=== PATIENT | female | born 1970 | race Caucasian/White ===

== ENCOUNTER 2017-07-17 21:12 | Emergency (ER) | payer MEDICARE | END 2017-07-18 00:10 | disposition home or self-care (01) | LOC: D.ER 21:12 | DX: S92.402A Displaced unspecified fracture of left great toe, initial encounter for closed fracture (principal); V23.4XXA Motorcycle driver injured in collision with car, pick-up truck or van in traffic accident, initial encounter; Y93.89 Activity, other specified; Y92.410 Unspecified street and highway as the place of occurrence of the external cause ==

== ENCOUNTER 2018-07-11 06:30 | Day surgery (SDC) | payer OTHER, MEDICARE ==
[2018-07-10 09:24] LABS: HEMATOCRIT 43.5 % (36.0-48.0); HEMOGLOBIN 14.3 g/dL (12-16); MCH 27.9 pg (26.0-34.0); MCHC 32.9 g/dL (31.0-37.0); MEAN PLATELET VOLUME 9.9 fL (7.4-10.4); RBC 5.12 10x6/uL (4.00-5.40); RDW 14.3 % (11.5-14.5); WBC 6.1 10x3/uL (4.8-10.8)
[~2018-07-11] VITALS: Ht 165.1 cm; Wt 72.6 kg
[~2018-07-11 06:30] MED LIST: LISINOPRIL10 MG PO; [UNRECOGNIZED DRUG - OTHER] PO
[2018-07-11 07:43] VITALS: BP 139/84; Ht 165.1 cm; Wt 72.6 kg
[2018-07-11] MEDS ORDERED: HYDROCODON-ACE1 EAC7 PO (09:46)
--- NOTE | 2018-07-11 11:15 | NUR ---
PATIENT AMBULATES TO BATHROOM AND VOIDS LARGE AMOUNT IN TOILET WITHOUT DIFFICULTY. AMBULATES USING WALKER WITHOUT UNSTEADINESS
--- NOTE | 2018-07-11 11:30 | NUR ---
PATIENT SITTING ON SIDE OF BED, DRESSING IN PERSONAL CLOTHING WITH AUNT'S ASSISTANCE. RIGHT HAND PIV DC'D WITH TIP INTACT. DISCHARGE INSTRUCTIONS REVIEWED WITH PATIENT AND AUNT
--- NOTE | 2018-07-11 11:40 | NUR ---
DISCHARGED HOME VIA WHEELCHAIR TO PRIVATE VEHICLE WITH AUNT
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
== END 2018-07-11 11:40 | disposition home or self-care (01) ==
LOC: D.OPS 06:30 → D.PAN 11:45
PROVIDERS: Anesthesiology; ATTEND Orthopaedic Surgery
DX: M65.862 Other synovitis and tenosynovitis, left lower leg (principal); Z01.812 Encounter for preprocedural laboratory examination

== ENCOUNTER 2019-06-26 05:10 | Day surgery (SDC) | payer OTHER, MEDICARE ==
[2019-06-24 09:44] LABS: BASOPHILS 0.6 % (0-2); EOSINOPHILS 2.6 % (0-7); HEMATOCRIT 38.1 % (36.0-48.0); HEMOGLOBIN 12.4 g/dL (12-16); IMMATURE GRANULOCYTES 0.4 % (0-5); LYMPHOCYTES 29.7 % (15-50); MCH 29.1 pg (26.0-34.0); MCHC 32.5 g/dL (31.0-37.0); MCV 89.4 fL (80.0-100.0); MEAN PLATELET VOLUME 9.7 fL (7.4-10.4); MONOCYTES 12.2 % (2-11); NEUTROPHILS 54.5 % (40-80); PLATELET COUNT 237 10x3/uL (130-400); RBC 4.26 10x6/uL (4.00-5.40); RDW 12.6 % (11.5-14.5)
[~2019-06-26] VITALS: Ht 165.1 cm; Wt 77.1 kg
--- NOTE | ~2019-06-26 | OP ---
PATIENT NAME: HANNA ALLEN MEDICAL RECORD: [id number] :72 LOCATION:[facility] ADMISSION DATE: SURGEON: TAB HARRIS MD DATE OF OPERATION: 06/26/2019 PREOPERATIVE DIAGNOSIS: Metrorrhagia. POSTOPERATIVE DIAGNOSIS: Endometrial polyps. PROCEDURE: Hysteroscopy, dilation and curettage. SURGEON: Tab Harris MD ANESTHESIA: General endotracheal. INTRAVENOUS FLUIDS: Per anesthesia record. HYSTEROSCOPIC FLUID LOSS: Approximately 200 cc of 0.9 normal saline. ESTIMATED BLOOD LOSS: Minimal. SPECIMENS: Endometrial curettings. COMPLICATIONS: None apparent. FINDINGS: 1. Grossly normal-appearing external genitalia, vagina and cervix. 2. Endometrium with multiple polyps. PROCEDURE IN DETAIL: The patient was taken to the operating room where general anesthesia was achieved without any difficulty. The patient was then prepped and draped in normal sterile fashion in the dorsal lithotomy position in the [facility]. Following prep and drape, the bladder was drained of approximately 200 cc of clear yellow urine. At this point, a Graves speculum was placed in the vagina and the cervix was identified and grasped on its anterior lip with a single tooth tenaculum. Dilation of cervix was performed to approximately 4 mm and the hysteroscope was used to enter the endometrial cavity without resistance. Survey of the endometrial cavity was performed and the hysteroscope was removed. Sharp curettage was then used to remove multiple polyps in all 4 quadrants. Repeat hysteroscopic evaluation after the curettage revealed majority of polyps removed. Several more targeted curettings were used to remove several of the larger polyps until the endometrial cavity was approximately 90% free of any polypoid tissue. The hysteroscope was found and removed and the tenaculum as well. The speculum was removed from the vagina. The patient tolerated the procedure well and was transported to postanesthesia recovery stable without incident. TRANSINT:[id number] Voice Confirmation ID: [id number] DOCUMENT ID: [id number] OPERATIVE REPORT [id number] TERIHANNA GREGG TAB HARRIS MD CC: [id number] DICTATION DATE: 07/10/19 0943 PROGRAM SCHEDULE CLERK: 07/10/19 1518 [facility] 06/26/19 [place] [address]
[~2019-06-26 05:10] MED LIST changes: +ASCORBIC ACID500 MG PO; +HYDROCODON-ACE1 EAC7 PO; +NORVASC10 MG PO; +SLOW RELEASE I160 MG PO
[2019-06-26 05:43] VITALS: BP 134/77; BMI 28.3
[2019-06-26 05:54] VITALS: Ht 165.1 cm; Wt 77.1 kg
[2019-06-26 06:01] LABS: HCG URINE NEGATIVE (NEGATIVE)
--- NOTE | 2019-06-26 09:16 | NUR ---
FULL LIQUID TRAY TO ROOM.
--- NOTE | 2019-06-26 10:18 | NUR ---
0955-DISCHARGE CRITERIA MET. REMOVED IV WITH CATH INTACT,DISPOSED INTO SHARPS,COVERED WITH GUAZE,SECURED WITH MEDIPORE TAPE. REVIEWED POST OPERATIVE INSTRCTIONS, FOLLOW UP APPOINTMENT AND PAIN PRESCRIPTION. VERBALIZED UNDERSTANDING
--- NOTE | 2019-06-26 10:19 | NUR ---
1010-PT DRESSED. ESCORTED OUT VIA W/C WITH FAMILY MEMBER AWAITING TO DRIVE HOME.
== END 2019-06-26 10:10 | disposition home or self-care (01) ==
LOC: D.PAN 05:10 → D.OPS 07:30 → D.PAN 07:30
PROVIDERS: ATTEND Obstetrics & Gynecology
DX: N92.1 Excessive and frequent menstruation with irregular cycle (principal); N84.0 Polyp of corpus uteri; R93.89 Abnormal findings on diagnostic imaging of other specified body structures; I10 Essential (primary) hypertension

== ENCOUNTER 2020-09-30 11:45 | Outpatient (CLI) | payer OTHER, MEDICARE ==
[2019-06-26 05:54] VITALS: BMI 26.6
== END 2020-09-30 23:59 | disposition home or self-care (01) ==
LOC: D.MAMMO 11:45
PROVIDERS: ATTEND Nurse Practitioner Family
DX: Z12.31 Encounter for screening mammogram for malignant neoplasm of breast (principal)